=== PATIENT | male | born 1945 | race Two or more races ===

== ENCOUNTER 2019-05-12 00:28 | Emergency (ER) | payer OTHER ==
[~2019-05-12] VITALS: Ht 167.6 cm; Wt 88.5 kg
[2019-05-12] MEDS ORDERED: ONDANSETRON ODT 4 MG TAB PO ONE (01:15)
[2019-05-12] MEDS ORDERED: MECLIZINE HCL 25 MG TAB PO ONE (01:15)
[2019-05-12 01:28] LABS: Basophils # (auto) 0 uL; Basophils % (auto) 0.7 % (0.0-2.0); Eosinophils # (auto) 0.2 uL; Eosinophils % (auto) 2.6 % (0.0-7.0); Hematocrit 40.9 % (41.0-53.0); Hemoglobin 13.8 g/dL (13.5-17.5); Lymphocytes # (auto) 1.2 uL; Lymphocytes % (auto) 18.4 % (10.0-50.0); Mean Corpuscular Hemoglobin 31.6 pg (28.0-32.0); Mean Corpuscular Hgb Conc. 33.9 g/dL (32.0-36.0); Mean Corpuscular Volume 93.4 fL (80.0-100.0); Monocytes # (auto) 0.6 uL; Monocytes % (auto) 8.6 % (0.0-12.0); Neutrophils # (auto) 4.6 uL; Neutrophils % (auto) 69.7 % (37.0-80.0); Platelet Count (auto) 167 10^3/uL (140-450); Red Blood Cells 4.38 10^6/uL (4.5-5.90); Red Cell Distribution Width 14.9 % (11.8-14.3); White Blood Cell 6.6 10^3/uL (4.4-10.8)
[2019-05-12 01:42] LABS: INR 0.98 (0.9-1.15); Partial Thromboplastin Time 24.1 sec (23.64-32.05)
[2019-05-12 01:50] LABS: Alanine Aminotransferase 30 U/L (16-61); Albumin 3.5 g/dL (3.4-5.0); Anion Gap 8 (5-15); Aspartate Aminotransferase 20 U/L (15-37); BUN/Creatinine Ratio 17.6; Blood Urea Nitrogen 22 mg/dL (7-18); Calcium 8.4 mg/dL (8.5-10.1); Carbon Dioxide 22 mmol/L (21-32); Chloride 109 mmol/L (98-107); GFR African American 73 mL/min; GFR Non-African American 60 mL/min; Glucose 147 mg/dL (74-106); Potassium 3.7 mmol/L (3.5-5.1); Sodium 139 mmol/L (136-145)
[2019-05-12 01:58] LABS: Alkaline Phosphatase 51 U/L (45-117); Bilirubin, Total 0.5 mg/dL (0.2-1.0); Total Protein 6.3 g/dL (6.4-8.2)
[2019-05-12 02:30] VITALS: BP 128/65
== END 2019-05-12 03:05 | disposition home or self-care (01) ==
LOC: EDBD 00:28 → ER 00:32
DX: R42 Dizziness and giddiness (principal); E11.9 Type 2 diabetes mellitus without complications; E78.5 Hyperlipidemia, unspecified; I10 Essential (primary) hypertension; Z86.73 Personal history of transient ischemic attack (TIA), and cerebral infarction without residual deficits
CPT/HCPCS: 36415; 70450; 71045; 80053; 83735; 83880; 84484; 85025; 85610; 85730; 94761; 99284; J8597; Q0162

== ENCOUNTER 2022-06-14 23:45 | Emergency (ER) | payer OTHER ==
[~2022-06-14] VITALS: Ht 167.6 cm; Wt 86.0 kg
[2022-06-15 03:29] VITALS: BP 151/82
[2022-06-15] MEDS ORDERED: ACETAMINOPHEN 500 MG TAB PO ONE (06:30)
[2022-06-15] MEDS ORDERED: AMOX-277 PO (07:27)
== END 2022-06-15 07:39 | disposition home or self-care (01) ==
LOC: ER 23:46
DX: J06.9 Acute upper respiratory infection, unspecified (principal); E11.9 Type 2 diabetes mellitus without complications; E78.5 Hyperlipidemia, unspecified; I10 Essential (primary) hypertension; Z86.73 Personal history of transient ischemic attack (TIA), and cerebral infarction without residual deficits; Z20.822 Contact with and (suspected) exposure to COVID-19; Z88.1 Allergy status to other antibiotic agents
CPT/HCPCS: 36415; 87070; 87426; 87804; 87880